=== PATIENT | male | born 1985 | race Asian ===

== ENCOUNTER 2021-03-05 19:39 | Emergency (ER) | payer BC ==
[~2021-03-05] VITALS: Ht 177.8 cm; Wt 77.1 kg
[2021-03-05 19:54] VITALS: BP_SYST 151
--- NOTE | 2021-03-05 19:55 | NUR ---
Placed in room Side rails up.Report given to SELF.
[2021-03-05] MEDS ORDERED: IBUPROFEN 600 MG TABLET PO ONE (20:00)
[2021-03-05] MEDS ORDERED: DIPH-TET-PERTUS Vaccine 0.5 ML VIAL (ADACEL) I.M. ONE (20:00)
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
--- NOTE | 2021-03-05 20:05 | NUR ---
ER at bedside examining patient.
--- NOTE | 2021-03-05 20:15 | NUR ---
[place] EMT PLACED STERI STRIP ON ONE MAJOR LAC AND COVERED THE REST
[2021-03-05] MEDS ORDERED: IBUPROFEN 600 MG TABLET ONE (20:17)
[2021-03-05] MEDS ORDERED: AMOX-426 PO (20:49)
--- NOTE | 2021-03-05 20:55 | NUR ---
Patient given written and verbal discharge instructions and verbalizes understanding. ER MD discussed with patient the results and treatment provided. Patient in stable condition. IV catheter removed intact and dressing applied, no active bleeding. Rx of amoxicillin given. Patient educated on pain management and to follow up with PMD. Pain Scale 4/10. Opportunity for questions provided and answered. Medication side effect fact sheet provided.
[2021-03-05 20:57] VITALS: BP_SYST 151
== END 2021-03-05 20:55 | disposition home or self-care (01) ==
LOC: SED 19:39
DX: S61.552A Open bite of left wrist, initial encounter (principal); Z79.899 Other long term (current) drug therapy; W54.0XXA Bitten by dog, initial encounter; Y93.89 Activity, other specified; Y92.89 Other specified places as the place of occurrence of the external cause; Y99.8 Other external cause status
CPT/HCPCS: 90715; 99283